=== PATIENT | female | born 1960 | race Caucasian/White ===

== ENCOUNTER → 2019-08-29 | Outpatient (CLI) | payer OTHER ==
[~2019-08-29] MED LIST: BUPIVACAINE-EPI 0.25%-1:200000 MPF 30 ML VIAL. IJ ONE; BUPIVACAINE-EPI 0.25%-1:200000 MPF 30 ML VIAL. ONE; EXEM25TA PO; LEVO25TA4 PO; SACC250C8 PO; vitamins
[2019-08-29 08:50] VITALS: BP 130/80
--- NOTE | 2019-08-29 08:53 | PDOC4 ---
Operative Report DATE Date: 08/29/2019 Preop Diagnosis Left medial thigh mass Post-op Diagnosis Same Operation Performed Excision of mass left medial thigh Dictation: Patient is a 58-year-old female has a lipomatous mass of the left medial thigh and a skin tag in the same area procedure of excision was explained to the patient detail risk benefits were also discussed including bleeding infection alternatives to this procedure also discussed with patient who seemed to understand and gave both verbal and written consent had procedure performed. Patient was taken to align his room placed in the supine position. The area of the left thigh was prepped and draped usual sterile fashion using ChloraPrep and area around the masses were injected with 1% lidocaine with epinephrine both masses were excised sharply with 15 blade scalpel and sent for pathology. 2 small wounds were then closed with 4-0 subcuticular Monocryl and dressed with a island dressing. Patient heart procedure well was discharged home in stable condition all sponge instrument needle counts listed as correct estimated blood loss less than 5 mL Surgeon Timur ANESTHESIA PROPOSED: LOCAL Blood Loss Less than 5 mL Specimen Left medial thigh mass 2 Complications None PJ SAGASTUME MD Aug 29, 2019 08:53
--- NOTE | 2019-08-30 20:07 | PATHOLOGY ---
[facility] Accession Number: [id number] . 01 Material submitted: . groin - LEFT SKIN TAG - GROIN MASS. Modifiers: left . 01 Clinical history: . Left skin tag and left groin mass . 02 Diagnosis: Segments (2) of skin, left skin tag/groin mass: - Cutaneous tag. - Acrochordon. LBQ 08/30/2019 1555 Local . 02 Comment: There is no evidence of malignancy. (JPM/db; 08/30/2019) . 02 Electronically signed: . Roger Elizabeth MD, Pathologist NPI- [id number] . 01 Gross description: . The specimen is received in formalin, labeled "Lisseth Gandara, left groin mass, skin tag" and consists of a polypoid segment of skin measuring 0.8 x 0.7 x 0.5 cm. The margin is inked black. It is trisected and entirely submitted in A1. Also received is an elliptical segment of pink-kuo skin measuring 0.9 x 0.8 cm excised to a maximum depth of 0.9 cm. The surgical margin is inked green. It is trisected and entirely submitted in A1. (SDY; 08/29/2019) SYU/SYU 08/30/2019 1552 Local . 02 Pathologist provided ICD-10: L91.8 . 02 CPT . 959119 Specimen Comment: A courtesy copy of this report has been sent to Specimen Comment: [phone], . Specimen Comment: Report sent to / BRODY Performed at: [address], [place], [place] [id number] MD Prashant Back MD Phone: [phone] Performed at: [address] [id number] MD Roger Elizabeth MD Phone: [phone]
== END ==
LOC: SURG 07:58
PROVIDERS: ATTEND Surgery
DX: R22.42 Localized swelling, mass and lump, left lower limb (principal); L91.8 Other hypertrophic disorders of the skin; E03.9 Hypothyroidism, unspecified; Z98.890 Other specified postprocedural states; Z90.12 Acquired absence of left breast and nipple; Z72.89 Other problems related to lifestyle
CPT/HCPCS: 11401; 88304; J3490; 11402

== ENCOUNTER 2021-07-30 11:12 | Emergency (ER) | payer OTHER ==
[~2021-07-30] VITALS: Ht 162.6 cm; Wt 76.9 kg
[~2021-07-30 11:12] MED LIST changes: -BUPIVACAINE-EPI 0.25%-1:200000 MPF 30 ML VIAL. IJ ONE; -BUPIVACAINE-EPI 0.25%-1:200000 MPF 30 ML VIAL. ONE
--- NOTE | 2021-07-30 12:09 | PHYS DOC ---
Past History Past Medical History: Other Additional Past Medical Histor: radiation, chemo for breast CA Past Surgical History: , Tonsillectomy Additional Past Surgical Histo: lumpectomy, lymph nodes removed Smoking: Non-smoker Alcohol Use: Occasionally Drug Use: None General Adult EDM: Chief Complaint: MECHANICAL FALL HPI: HPI: Patient is a 60-year-old female being seen in the ER following a fall. Patient reports that she was walking and tripped and fell forward and caught herself with her hands. Patient is complaining of right upper extremity pain. She denies hitting her head, no loss of consciousness, no head or neck pain reported, no use of blood thinners, no vision changes, no nausea or vomiting. Patient rates pain 6 out of 10. No treatment prior to arrival. Patient was ambulatory with a steady gait. Patient currently has an ice pack. Review of Systems: Review of Systems: 14 body systems of the review of systems have been reviewed. See HPI for pertinent positive and negative responses, otherwise all other systems are negative, nonpertinent or noncontributory Allergies: Allergies: Allergies Coded Allergies Type Severity Reaction Last Updated Verified Sulfa (Sulfonamide Antibiotics) Allergy Intermediate Hives 08/29/19 Yes nitrofurantoin Allergy Unknown 08/29/19 Yes Physical Exam: PE: Constitutional: Well developed, well nourished, no acute distress, non-toxic appearance. [] HENT: Normocephalic, atraumatic, bilateral external ears normal, oropharynx moist, no oral exudates, nose normal. [] Eyes: PERRL, EOMI, conjunctiva normal, no discharge. [] Neck: Normal range of motion, no tenderness, supple, no stridor. [] Cardiovascular:Heart rate regular rhythm, no murmur [] Lungs & Thorax: Bilateral breath sounds clear to auscultation [] Abdomen: Bowel sounds normal, soft, no tenderness, no masses, no pulsatile masses. [] Skin: Warm, dry, no erythema, no rash, abrasion noted to left knee, no swelling, range of motion intact, neurovascularly intact Back: Normal range of motion Extremities: No tenderness, no cyanosis, no clubbing, ROM intact, no edema. Left upper extremity/left lower: Pain with palpation of elbow,, pain with palpation of left knee , no swelling, no crepitus, no obvious deformity, range of motion intact, neurovascularly intact. Right upper extremity: No obvious deformity, mild swelling, no wounds noted, mid to pronation and supination, neurovascularly intact, pain to entire right upper extremity with palpation Neurologic: Alert and oriented X 3, normal motor function, normal sensory function, no focal deficits noted. [] Psychologic: Affect normal, judgement normal, mood normal. [] Current Patient Data: Vital Signs: Vital Signs Date Time Temp Pulse Resp B/P (MAP) Pulse Ox O2 Delivery O2 Flow Rate FiO2 07/30/21 11:45 97.9 79 16 137/58 (84) 99 EKG: EKG: [] Radiology/Procedures: Radiology/Procedures: PROCEDURE: WRIST 3V RIGHT EXAM: XR HUMERUS_RT 2 VIEWS, XR RT WRIST 3VIEWS, XR FOREARM_RIGHT 2 VIEWS, XR SHOULDER_RIGHT 2+ VIEWS 07/30/2021 12:06 PM CLINICAL INDICATION: Fall, right shoulder and arm pain, feels twisted COMPARISON: None FINDINGS: Right wrist: 3 views were obtained. There is no acute fracture. Alignment is normal. Joint spaces are maintained. Soft tissues tissue is normal. Right forearm: 2 views were obtained. There is a nondisplaced intra-articular fracture of the radial head neck with mild angulation of the radial neck. No other fracture or dislocation in the forearm. Large elbow joint effusion. Right humerus: 2 views were obtained. No acute fracture or malalignment of the humerus. Proximal radius fracture described above. Right shoulder: 3 views were obtained. No acute fracture. Alignment is normal. There is mild acromioclavicular degenerative joint disease. Surgical clips are in the right axilla. IMPRESSION: 1. Intra-articular fracture of the radial head and neck. 2. No other fracture in the right forearm, wrist, humerus, or shoulder. Electronically signed by: Radha Rahman MD (07/30/2021 12:37 PM) [id number] DICTATED AND SIGNED BY: RADHA RAHMAN MD DATE: 07/30/21 1234 CC: NIA SKINNER MD; KETTY MANZO APRN ~MTH0 0 [] Heart Score: C/O Chest Pain: No Risk Factors: Risk Factors: DM, Current or recent (<one month) smoker, HTN, HLP, family history of CAD, obesity. Risk Scores: Score 0 - 3: 2.5% MACE over next 6 weeks - Discharge Home Score 4 - 6: 20.3% MACE over next 6 weeks - Admit for Clinical Observation Score 7 - 10: 72.7% MACE over next 6 weeks - Early Invasive Strategies Course & Med Decision Making: Course & Med Decision Making Pertinent Labs and Imaging studies reviewed. (See chart for details) [] Patient is a 60-year-old female being seen in the ER for right upper extremity pain following a fall today. Patient has no head or neck pain. Patient does not take any blood thinners and had no loss of consciousness. She has no amnesia surrounding the event. Patient had an x-ray performed of her right upper extremity. Patient has an abrasion to her left knee but she states that she does not feel like she needs imaging performed because she can move it fine. Patient is also reporting left elbow pain but states that she can move it normally does not feel like she needs an x-ray. Patient's pain treated in the ER. Showed nondisplaced intra-articular fracture of the radial head/neck. I spoke with Dr. Joseph at [facility] and he agreed to see patient in the office. He advised a posterior splint with sling. Patient given follow-up information. She was splinted in the ER. Neurovascularly intact pre and post placement. Patient tolerated procedure. xray disc made for patient. Patient discharged home with pain medication. I discussed with patient all findings and diagnostic testing as well as the need to follow-up with PCP for further evaluation and treatment or return to the ER if any new or worsening symptoms. Strict return precautions were also discussed at length. Patient voiced understanding and agreement with the plan. Patient is hemodynamically stable at the time of disposition. Dragon Disclaimer: Dragon Disclaimer: This electronic medical record was generated, in whole or in part, using a voice recognition dictation system. Departure Departure: Impression: Primary Impression: Radial head fracture Qualified Codes: S52.124A - Nondisplaced fracture of head of right radius, initial encounter for closed fracture Disposition: HOME / SELF CARE / HOMELESS Condition: GOOD Referrals: NIA SKINNER MD (PCP) Patient Instructions: Wrist Fracture Additional Instructions: You were seen in the ER following a fall. You were noted to have a radial head fracture. Your wrist was placed in a splint and you were given a sling. You can take ibuprofen or naproxen for mild pain. You are being discharged home with [place]. This medication is hydrocodone and Tylenol combination tablet. This medication may cause drowsiness so do not take need to be alert and do not take with alcohol. I spoke with Dr. Joseph at [facility], he would like to see you in his office within the week. Please call [phone] to follow-up with him. His office is next to [facility] in the doctor's building. You should perform range of motion exercises to prevent stiffness of your joints. Splints help with the pain and can promote healing but immobility can cause chronic pain over time. Please refer to these attached instructions regarding range of motion exercises. Keep the splint clean and dry avoid getting it wet. If the splint gets wet you will need to have it replaced. You should use ice and elevation to help with the swelling and pain. For the first 24 hours apply ice 20 minutes on 20 minutes off 4 times per day. Ensure that ice is in a plastic bag as to not get the splint wet. You may take NSAID medications (Tylenol, ibuprofen, naproxen) to help with the pain. Please return to the emergency department if you develop any of the following symptoms: Increasing pain that does not improve with treatments. New numbness or tingling Warmth, redness, skin discoloration, skin breakdown, drainage from under splint or near splinted area. Increasing inability to move your extremity or digits. Foul odor coming from splint Fevers or chills Nausea or vomiting Persistent lightheadedness We would be happy to see you for any other concerning symptoms regarding your splinted extremity. Scripts Hydrocodone Bit/Acetaminophen (HYDROCODONE-APAP 5-325 ) 1 Each Tablet 1 TAB PO PRN Q6HRS PRN for PAIN for 3 Days, #12 TAB 0 Refills Prov: KETTY MANZO APRN 07/30/21 KETTY MANZO APRN Jul 30, 2021 12:09
[2021-07-30] MEDS ORDERED: HYDROcodone/APAP 5/325MG 1 TAB TABLET PO ONE (12:15)
[2021-07-30] MEDS ORDERED: DIPH,PERTUSS(ACELL),TET VAC/PF 0.5 ML SYRINGE. VAX IM ONE (12:15)
--- NOTE | 2021-07-30 12:40 | RAD ---
EXAM: XR HUMERUS_RT 2 VIEWS, XR RT WRIST 3VIEWS, XR FOREARM_RIGHT 2 VIEWS, XR SHOULDER_RIGHT 2+ VIEW S 07/30/2021 12:06 PM CLINICAL INDICATION: Fall, right shoulder and arm pain, feels twisted COMPARISON: None FINDINGS: Right wrist: 3 views were obtained. There is no acute fracture. Alignment is normal. Joint spaces are maintained. Soft tissues tissue is normal. Right forearm: 2 views were obtained. There is a nondisplaced intra-articular fracture of the radial head neck with mild angulation of the radial neck. No other fracture or dislocation in the forearm. L arge elbow joint effusion. Right humerus: 2 views were obtained. No acute fracture or malalignment of the humerus. Proximal radi us fracture described above. Right shoulder: 3 views were obtained. No acute fracture. Alignment is normal. There is mild acromioc lavicular degenerative joint disease. Surgical clips are in the right axilla. IMPRESSION: 1. Intra-articular fracture of the radial head and neck. 2. No other fracture in the right forearm, wrist, humerus, or shoulder. Electronically signed by: Radha Rahman MD (07/30/2021 12:37 PM) [id number]
[2021-07-30] MEDS ORDERED: HYDR-2155 PO (13:03)
[2021-07-30 13:30] VITALS: BP 119/75
== END 2021-07-30 13:45 | disposition home or self-care (01) ==
LOC: ER 11:12
DX: S52.124A Nondisplaced fracture of head of right radius, initial encounter for closed fracture (principal); S80.212A Abrasion, left knee, initial encounter; Z88.2 Allergy status to sulfonamides; Z88.8 Allergy status to other drugs, medicaments and biological substances; W01.0XXA Fall on same level from slipping, tripping and stumbling without subsequent striking against object, initial encounter; Y93.01 Activity, walking, marching and hiking; Y92.89 Other specified places as the place of occurrence of the external cause; Y99.8 Other external cause status
CPT/HCPCS: 29125; 73030; 73060; 73090; 73110; 90471; 90715; 99284